=== PATIENT | male | born 1975 | race Caucasian/White ===

== ENCOUNTER → 2018-06-06 | Outpatient (CLI) | payer BC ==
--- NOTE | 2018-06-06 15:07 | RAD ---
PA view of the chest and 2 views of the left ribs without comparison for left rib pain for a few months. FINDINGS: The lungs are clear. The cardiomediastinum is grossly unremarkable. No significant osseous abnormalities are seen. No displaced rib fractures are identified. IMPRESSION: 1. No radiographically evident rib fractures. Electronically signed by: Brandon Nice MD (06/06/2018 3:04 PM) [id number]
== END | disposition home or self-care (01) ==
LOC: PMG 09:54
DX: R07.81 Pleurodynia (principal)
CPT/HCPCS: 71101